=== PATIENT | male | born 2000 | race Caucasian/White ===

== ENCOUNTER 2024-02-13 05:27 | Emergency (ER) | payer MEDICAID ==
[~2024-02-13] VITALS: Ht 162.6 cm; Wt 42.3 kg
[2024-02-13 05:29] VITALS: BP 127/94; PULSE 75; RESP 18; TEMP 97.9; O2SAT 100
== END 2024-02-13 05:53 | disposition home or self-care (01) ==
LOC: ER 05:28
DX: S50.862A Insect bite (nonvenomous) of left forearm, initial encounter (principal); Z88.8 Allergy status to other drugs, medicaments and biological substances; W57.XXXA Bitten or stung by nonvenomous insect and other nonvenomous arthropods, initial encounter; Y93.89 Activity, other specified; Y92.89 Other specified places as the place of occurrence of the external cause; Y99.8 Other external cause status
CPT/HCPCS: 99281